=== PATIENT | male | born 1970 | race Caucasian/White ===

== ENCOUNTER 2018-08-24 19:21 | Emergency (ER) | payer BC ==
[~2018-08-24] VITALS: Ht 198.1 cm; Wt 170.1 kg
[2018-08-24 19:50] VITALS: Ht 198.1 cm; Wt 170.1 kg
[2018-08-24 21:07] LABS: BASOPHIL % 0.3 % (0-2); PLATELET COUNT 92 x10^3mcL (130-400); RED CELL DISTRIBUTION WIDTH 15.9 % (11.5-14.5)
[2018-08-24 21:11] LABS: CALCIUM 8.5 mg/dL (8.5-10.1); CARBON DIOXIDE 27.1 mmol/L (21-32); CHLORIDE SERUM 103 mmol/L (98-107); GFR1 > 60 mL/min; GLUCOSE SERUM 442 mg/dL (74-106); POTASSIUM SERUM 3.7 mmol/L (3.5-5.1); SODIUM SERUM 138 mmol/L (136-145)
[2018-08-24 21:16] LABS: ALKALINE PHOSPHATASE 86 U/L (46-116); ALT/SGPT 25 U/L (16-63); AST/SGOT 26 U/L (15-37); BILIRUBIN TOTAL 1.1 mg/dL (0.20-1.00); CHOLESTEROL 176 mg/dL (<200); HDL CHOLESTEROL 53 mg/dL (40-60); TOTAL PROTEIN, SERUM 6.2 g/dL (6.4-8.2)
[2018-08-24 21:17] LABS: ALBUMIN 2.2 g/dL (3.4-5.0)
[2018-08-24 23:24] LABS: AMPHETAMINE QUAL UR NONE DETECTED (See below)
[2018-08-25 02:16] VITALS: BP 161/93
== END 2018-08-25 03:00 | disposition home or self-care (01) ==
LOC: ED 19:21
PROVIDERS: Emergency Medicine
DX: I10 Essential (primary) hypertension (principal); E11.65 Type 2 diabetes mellitus with hyperglycemia; F32.9 Major depressive disorder, single episode, unspecified; G43.909 Migraine, unspecified, not intractable, without status migrainosus
CPT/HCPCS: 82962; G0480; J1815; J2405; J3010; J3490; J7030; Q0092